=== PATIENT | male | born 1985 ===

== ENCOUNTER 2016-09-25 19:21 | Emergency (ER) | payer OTHER, BC ==
[2016-09-25 20:21] VITALS: BMI 34.0
[2016-09-25 20:22] VITALS: BP 118/68; PULSE 85; RESP 18; TEMP 98.2; O2SAT 98
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
== END 2016-09-25 22:49 | disposition home or self-care (01) ==
LOC: ED 19:21 → MERGE 19:21 → ED 22:49
DX: S39.012A Strain of muscle, fascia and tendon of lower back, initial encounter (principal); S29.012A Strain of muscle and tendon of back wall of thorax, initial encounter; V49.49XA Driver injured in collision with other motor vehicles in traffic accident, initial encounter; Y92.410 Unspecified street and highway as the place of occurrence of the external cause
CPT/HCPCS: 70450; 72070; 72110; 72125; 96372; 99283; J1885